=== PATIENT | female | born 1990 ===

== ENCOUNTER 2018-10-01 21:20 | Inpatient (IN) | payer OTHER ==
[2018-10-01 21:59] VITALS: BMI 23.2
[2018-10-01] MEDS ORDERED: Lactated Ringer's 1,000 ML IV ONE (21:59)
[2018-10-01] MEDS ORDERED: Oxytocin 30 UNIT in NS 500 ml 30 UNITS/500 ML BAG IV ONE (21:59)
[2018-10-01] MEDS ORDERED: Lactated Ringer's 1,000 ML IV SCH (22:00)
--- NOTE | 2018-10-01 22:21 | OBHP ---
Datetime: 10/01/2018 22:01 IP Adm Impression: Term, intrauterine ; No Active Labor IP Chief Complaint Other: low back pain IP Adm Impression Other: Anemia IP Admit Plan: Admit to unit; Initiate labor augmentation protocol Admit Comment, IP Provider: Thisis a private patient of Dr. Kaur 28 y.o. , LOMP 12/23/17, revised TA 10/13/18, EGA 38w 2d by sono 04/08/18 at 12 weeks, C/O L BP since 0930 hours. Seen by PMD earlier today: cervical exam 2-3/80%. 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 Unemployed. x 7 1/2 years. [facility] with [facility] Hx: Mother alive 48 y.o. no med issues. Father alive 53 y.o. HTN, DM. No known fam h/o cancer P.E.: as above. WD in NAD. Awake, alert, oriented to time, person and place. 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 P0010, 38w 2d. Category [address]. [address] Kaur, D/W patient: - AROM - Pitocin - Epidural for pain control - anticpated vaginal delivery patietn expressed an understanding and agrees. No questions offered. Patient is clinically stable. Plan: 1) As above 2) Admit 3) Admission labs 4) IVFs 5) Continuous EFM 6) Anticipate vaginal delivery - as per Dr. Kaur Addendum: AROM performed 2216 hours: moderate amount of clear amnionic fluid obtained. - patient in stable condition Pelvic Type - PN: Adequate Extremities - PN: Normal Abdomen - PN: Normal Back - PN: Normal Breast - PN: Not Done Lungs - PN: Normal Heart - PN: Normal Thyroid - PN: Not Done Neurologic - PN: Normal HEENT - PN: Normal General - PN: Normal Weight - Estimated: 3178 Presentation-Admit: Vertex FHR - Baseline A Provider: 140 Contraction Comments Provider: irregular Comments, ACOG Physical Exam: Abdomen: Gravid. Soft. Fundal height 36 cm All other systems reviewed and are negative Gestation - Est Wks by US: 38w 2d IP Hx Assessment: The History has been Reviewed EGA AdmitDate IP: 38.2 Vital Signs Provider: Reviewed IP Chief Complaint: Other FHR Category Provider Fetus A: Category I NICHD Decel Fetus A IP Provider: None Dilatation, Provider: 3 Effacement, Provider: 70 Station, Provider: -2 Genitourinary Exam: Normal DTRs - PN: Not Done
[2018-10-01 22:36] LABS: BASO % 0.2 % (0.0-2.0); EOS # 0.1 K/uL (0.0-0.7); EOS % 0.9 % (0.0-4.0); LYMPH # 1.7 K/uL (1.0-4.3); LYMPH % 19.2 % (20.0-40.0); MEAN CORPUSCULAR HGB CONC 34.7 g/dL (33.0-37.0); MEAN PLATELET VOLUME 8.7 fL (7.2-11.7); MONO # 0.9 K/uL (0.0-0.8); MONO % 10.5 % (0.0-10.0); NEUT # 6.2 K/uL (1.8-7.0); NEUT % 69.2 % (50.0-75.0); NRBC % 0.2 % (0.0-2.0); RBC 3.54 Mil/uL (3.80-5.20); RED CELL DISTRIBUTION WIDTH 13.7 % (11.5-14.5)
[2018-10-01 22:39] LABS: SQUAMOUS EPITHIAL < 1 /hpf (0-5); URINE BACTERIA RARE (<OCC); URINE BILIRUBIN NEGATIVE (NEGATIVE); URINE BLOOD NEGATIVE (NEGATIVE); URINE CLARITY Clear (Clear); URINE COLOR Colorless (YELLOW); URINE GLUCOSE (UA) NORMAL (Normal); URINE LEUKOCYTE ESTERASE NEG Leu/uL (Negative); URINE PROTEIN NEGATIVE (NEGATIVE); URINE UROBILINOGEN NORMAL mg/dL (0.2-1.0)
[2018-10-01 22:41] LABS: WHITE BLOOD COUNT 8.9 K/uL (4.8-10.8)
[2018-10-01 22:42] LABS: MEAN CELL VOLUME 97.9 fL (81.0-99.0)
[2018-10-01 22:47] LABS: ALB/GLOB RATIO 1.3 (1.0-2.1); ALBUMIN 3.7 g/dL (3.5-5.0); ALT/SGPT 22 U/L (9-52); AST/SGOT 25 U/L (14-36); BLOOD UREA NITROGEN 5 mg/dL (7-17); CALCIUM 9.8 mg/dl (8.6-10.4); GFR NON-AFRICAN AMERICAN > 60
[2018-10-01 22:57] LABS: BARBITURATES, UR NEGATIVE (NEGATIVE); BENZODIAZEPINES, UR NEGATIVE (NEGATIVE); OPIATES, UR NEGATIVE (NEGATIVE); PHENCYCLIDINE, UR NEGATIVE (NEGATIVE)
[2018-10-01] MEDS ORDERED: Fentanyl/Bupivacaine HCl 250 ML EPI ONE (23:30)
[2018-10-02] MEDS ORDERED: Oxytocin 30 UNIT in NS 500 ml 30 UNITS/500 ML BAG IV ONE (00:29)
--- NOTE | 2018-10-02 05:06 | OBPN ---
Datetime: 10/02/2018 05:01 IP Progress Impression: Normal progression of labor IP Procedures: Sterile Speculum Exam IP Progress Plan: Continue present management; Augmentation; Anticipate Vaginal Delivery Membranes, Provider: Ruptured Contraction Comments Provider: 2 FHR - Baseline A Provider: 130 Gestation - Est Wks by US: 38w 3d IP Progress Note Comment: Late decels noted and recovered. Patient is comfortable S/P epidural Cervical exam as above. Pitocin at 10 mUnits Assessment: 28 y.o. P0010, 38w 3d in active labor. Category 1 tracing. Clinically stable Plan: 1) Anticipate vaginal delivery - FHR Category Provider Fetus A: Category I Dilatation, Provider: 6-7 Effacement, Provider: 80 Station, Provider: -1 NICHD Decel Fetus A IP Provider: Early Datetime: 10/01/2018 22:01 Weight - Estimated: 3178 Presentation-Admit: Vertex Vital Signs Provider: Reviewed
[2018-10-02] MEDS ORDERED: Oxycodone/Acetaminophen 5/325 mg Tab PO PRN (09:27)
[2018-10-02] MEDS ORDERED: Benzocaine/Menthol 20%-0.5% Topical Spray (60 ml) TOP PRN (09:27)
--- NOTE | 2018-10-02 09:31 | OBPN ---
Datetime: 10/02/2018 09:29 IP Progress Impression: Normal progression of labor IP Procedures: Sterile Vag Exam Contraction Comments Provider: ir FHR - Baseline A Provider: 130 IP Progress Note Comment: pt was examind at bed sie ve fd/100/0 will start pushing Vital Signs Provider: Reviewed; Within Normal Limits NICHD Accel Fetus A IP Provider: 15X15 NICHD Variability Prov Fetus A: Moderate 6-25bpm Dilatation, Provider: 10 Effacement, Provider: 100 Station, Provider: 0
--- NOTE | 2018-10-02 09:31 | OBADHP ---
Datetime: 10/02/2018 09:29 FHR - Baseline A Provider: 130 Contraction Comments Provider: ir Vital Signs Provider: Reviewed; Within Normal Limits NICHD Variability Prov Fetus A: Moderate 6-25bpm NICHD Accel Fetus A IP Provider: 15X15 Dilatation, Provider: 10 Effacement, Provider: 100 Station, Provider: 0 Datetime: 10/02/2018 05:01 Membranes, Provider: Ruptured Gestation - Est Wks by US: 38w 3d IP Hx Assessment: The History has been Reviewed and is Current FHR Category Provider Fetus A: Category I NICHD Decel Fetus A IP Provider: Early Datetime: 10/01/2018 22:01 EGA AdmitDate IP: 38.2
--- NOTE | 2018-10-02 09:34 | OBDS ---
DELIVERY PERSONNEL Delivery Doctor: Bari Kaur MD Scrub Nurse: Estelle Hastings Chemical Equipment Controller: SupriyapieterZoe matsonce RN MATERNAL INFORMATION Delivery Anesthesia: Epidural Medications in Delivery: Pitocin Estimated Blood Loss (ml): 350 RN Comments: Vaccum assisted vaginal delivery to a live baby Boy Provider Comments: see vaccum arthur note LABOR SUMMARY EDC: 10/13/2018 00:00 No. Babies in Womb: 0 MEMBRANES Membranes Rupture Method: Artificial Rupture of Membranes: 10/01/2018 22:16 Amniotic Fluid Color: Clear Amniotic Fluid Amount: Moderate Amniotic Fluid Odor: Normal VAGINAL DELIVERY Episiotomy: Right Mediolateral BABY A INFORMATION Vacuum Extraction: Successful ASSISTED DELIVERY BABY A Indication for Assisted Delivery: prolonged bdraycardua Station Vacuum/Forcep Apply: +3 Position Vacuum/Forcep Apply: Left Occipital Anterior Vacuum Number of Pulls: 2 Vacuum Number of PopOffs: 1 Vacuum Maximum Pressure Obtained: 40 Reduce Pressure btwn Ctx: Yes Vacuum Security Team Lead: Youmiamwi Total Time Vacuum Applied: 30 Vacuum/Forceps Comment: vaccup applied fpor prlonged brads cardia. rml ma vaccum applied and deliverd . peads prsemt. tight cord. cut with clamps. co,pound presemtation. left srm deliverd. no com PRESENTATION/POSITION BABY A Presentation: Cephalic Cephalic Presentation: Vertex Vertex Position: Left Occipital Anterior PLACENTA INFORMATION BABY A Placenta Method of Delivery: Spontaneous Placenta Status: Delivered IDENTIFICATION/MEDS BABY A ID Band Number: [id number] Sensor Number: [id number]
[2018-10-02] MEDS: Multiple Vitamins Tab PO SCH (15:16)
[2018-10-03 08:14] LABS: BASO % 0.2 % (0.0-2.0); EOS % 0.3 % (0.0-4.0); HEMOGLOBIN 10.1 g/dL (11.0-16.0); LYMPH % 14.3 % (20.0-40.0); MEAN CELL VOLUME 96.9 fL (81.0-99.0); MEAN CORPUSCULAR HGB CONC 36.1 g/dL (33.0-37.0); MEAN PLATELET VOLUME 8.4 fL (7.2-11.7); MONO # 0.9 K/uL (0.0-0.8); MONO % 6.3 % (0.0-10.0); NEUT # 11.1 K/uL (1.8-7.0); NEUT % 78.9 % (50.0-75.0); RBC 2.88 Mil/uL (3.80-5.20); RED CELL DISTRIBUTION WIDTH 13.7 % (11.5-14.5)
[2018-10-03 08:17] LABS: WHITE BLOOD COUNT 14.1 K/uL (4.8-10.8)
[2018-10-03] MEDS: Multiple Vitamins Tab PO SCH (10:00)
[2018-10-04 00:12] VITALS: O2SAT 99
[2018-10-04 09:01] LABS: BASO % 0.2 % (0.0-2.0); EOS # 0.2 K/uL (0.0-0.7); EOS % 1.6 % (0.0-4.0); HEMOGLOBIN 10.5 g/dL (11.0-16.0); LYMPH # 1.8 K/uL (1.0-4.3); MEAN CELL VOLUME 96.8 fL (81.0-99.0); MEAN CORPUSCULAR HEMOGLOBIN 33.9 pg (27.0-31.0); MEAN CORPUSCULAR HGB CONC 35.1 g/dL (33.0-37.0); MONO # 0.8 K/uL (0.0-0.8); MONO % 6.8 % (0.0-10.0); NEUT # 8.6 K/uL (1.8-7.0); NEUT % 75.4 % (50.0-75.0); RBC 3.1 Mil/uL (3.80-5.20); RED CELL DISTRIBUTION WIDTH 13.7 % (11.5-14.5); WHITE BLOOD COUNT 11.4 K/uL (4.8-10.8)
[2018-10-04] MEDS ORDERED: Tdap Vaccine 0.5 ml Vial (10-64 yrs) IM ONE (09:30)
[2018-10-04] MEDS: Multiple Vitamins Tab PO SCH (10:06)
[2018-10-04 16:58] VITALS: BP 93/56; PULSE 70; RESP 18; TEMP 99.1
== END 2018-10-04 11:30 | disposition home or self-care (01) | DRG 373 ==
LOC: C.EROB 21:20 → C.4D 22:00 → C.4M 10-02 11:25
PROVIDERS: ADMIT Obstetrics & Gynecology; ATTEND Obstetrics & Gynecology
PROC: 10907ZC Drainage of Amniotic Fluid, Therapeutic from Products of Conception, Via Natural or Artificial Opening (ICD-10-PCS; 2018-10-01)
PROC: 10D07Z6 Extraction of Products of Conception, Vacuum, Via Natural or Artificial Opening (ICD-10-PCS; principal; 2018-10-02)
PROC: 0W8NXZZ Division of Female Perineum, External Approach (ICD-10-PCS; 2018-10-02)
DX: O99.02 Anemia complicating childbirth (principal); O76 Abnormality in fetal heart rate and rhythm complicating labor and delivery; O69.2XX0 Labor and delivery complicated by other cord entanglement, with compression, not applicable or unspecified; D64.9 Anemia, unspecified; Z3A.38 38 weeks gestation of pregnancy; Z37.0 Single live birth